=== PATIENT | male | born 1980 | race Caucasian/White ===

== ENCOUNTER 2017-12-19 23:02 | Emergency (ER) | payer OTHER ==
[2017-12-19] MEDS ORDERED: ALBUTEROL NEB 2.5 MG/3 ML INH STA (23:32)
[2017-12-19] MEDS ORDERED: KETOROLAC 60 MG/2 ML VIAL IM STA (23:32)
[2017-12-19] MEDS ORDERED: PSEUDOEPHEDRINE 30 MG TABLET PO STA (23:32)
[2017-12-19] MEDS ORDERED: predniSONE 20 MG TABLET PO STA (23:32)
--- NOTE | 2017-12-19 23:33 | ED Physician Documentation ---
PD HPI URI - Stated complaint Stated Complaint: FLU LIKE SYMPT - Chief complaint Chief Complaint: General - History obtained from History obtained from: Patient - History of Present Illness Timing - onset: Yesterday Timing details: Gradual onset, Still present Associated symptoms: Fever, Chills, Nasal congestion, Rhinorrhea, Dry cough Similar symptoms before: No diagnosis Recently seen: Not recently seen - Additional information Additional information: Patient is a 37 year old male with a history of asthma as a child who is presenting to the emergency department for fever, cough, wheezing and URI symptoms. patient has had symptoms for the past couple of days but his girlfriend was worried that he might have the flu and wanted Review of Systems Constitutional: reports: Fever, Myalgias Eyes: denies: Discharge, Irritation Ears: denies: Ear pain Nose: reports: Rhinorrhea / runny nose, Congestion, Sinus pressure / pain Throat: denies: Sore throat Cardiac: denies: Chest pain / pressure Respiratory: reports: Cough, Wheezing GI: denies: Nausea, Vomiting : reports: Reviewed and negative Skin: reports: Reviewed and negative Musculoskeletal: reports: Reviewed and negative Neurologic: denies: Generalized weakness, Focal weakness Immunocompromised: denies: Immunocompromised PD PAST MEDICAL HISTORY - Past Medical History Respiratory: Asthma - Past Surgical History Past Surgical History: Yes - Present Medications Home Medications: Ambulatory Orders Medication Instructions Recorded Confirmed Albuterol Sulf [Ventolin Hfa 2 puffs INH Q4HR PRN #1 inhaler 12/20/17 Inhaler] predniSONE [Prednisone] 40 mg PO DAILY 5 Days tablet 12/20/17 - Allergies Allergies/Adverse Reactions: Allergies Allergy/AdvReac Type Severity Reaction Status Date / Time No Known Drug Allergies Allergy Verified 12/19/17 23:18 - Social History Does the pt smoke?: No Smoking Status: Never smoker Does the pt drink ETOH?: Yes Does the pt have substance abuse?: No - Immunizations Immunizations are current?: Yes - POLST Patient has POLST: Yes PD ED PE NORMAL - Vitals Vital signs reviewed: Yes - General General: Alert and oriented X 3 - HEENT HEENT: Atraumatic, PERRL - Neck Neck: Supple, no meningeal sign - Cardiac Cardiac: RRR - Abdomen Abdomen: Soft - Derm Derm: Normal color, No rash - Extremities Extremities: No edema, No calf tenderness / cord - Neuro Neuro: Alert and oriented X 3, No motor deficit, Normal speech - Psych Psych: Normal mood PD ED PE EXPANDED - HEENT HEENT: Nasal congestion, Rhinorrhea - Respiratory Respiratory: Wheezing, Right upper lobe, Right middle lobe, Right lower lobe, Left upper lobe, Left lower lobe Results - Vitals Vitals: Vital Signs - 24 hr 12/19/17 23:14 Temperature 36.5 C Heart Rate 71 Respiratory 24 Rate Blood Pressure 124/84 H O2 Saturation 93 Oxygen O2 Source Room air PD MEDICAL DECISION MAKING - ED course Complexity details: reviewed old records, reviewed results, re-evaluated patient , considered differential, d/w patient ED course: Patient was seen and examined at bedside. patient had active wheezing and was treated with prednisone, toradol and albuterol. patient's wheezing resolved. Patient's symptoms were likely viral in nature. Patient required no further work up and was stable for discharge with outpatient follow up. Departure - Departure Disposition: Home, Self Care Clinical Impression: Upper respiratory infection, viral Condition: Good Instructions: ED Viral Syndrome Follow-Up: primary,care provider [Other] - Within 3 Days Prescriptions: Albuterol Sulf [Ventolin Hfa Inhaler] 2 puffs INH Q4HR PRN #1 inhaler PRN Reason: Wheezing predniSONE [Prednisone] 40 mg PO DAILY 5 Days tablet Comments: Your symptoms are likely viral in nature. There is nothing that specifically kills the virus, only to treat the symptoms. You have been prescribed albuterol and prednisone for the reactive airway symptoms and you should take over the counter cold and flu medications for your other symptoms. You should stay away from the very young and very old and make sure those that are interacting with you partake in adequate hand washing. You should follow up with your doctor friday if your symptoms are still present. You may return to the emergency department at any time for new, worsening or uncontrollable symptoms.
[2017-12-20 00:33] VITALS: BP 121/78
== END 2017-12-20 00:27 | disposition home or self-care (01) ==
LOC: ED 23:02
DX: J06.9 Acute upper respiratory infection, unspecified (principal); B97.89 Other viral agents as the cause of diseases classified elsewhere
CPT/HCPCS: 94640; 99283; A9270; J7512; J7613